=== PATIENT | female | born 1950 | race Hispanic/Latino ===

== ENCOUNTER 2018-03-24 11:23 | Day surgery (SDC) | payer MEDICARE ==
[2018-03-24] MEDS ORDERED: IOPIDINE OS ONE (11:50)
[2018-03-24] MEDS ORDERED: AK-Dilate OS ONE (11:55)
[2018-03-24] MEDS ORDERED: MYDRIACYL OS ONE (11:56)
[2018-03-24] MEDS ORDERED: IOPIDINE ONE (14:47)
[2018-03-24] MEDS ORDERED: AK-Dilate ONE (14:47)
[2018-03-24] MEDS ORDERED: MYDRIACYL ONE (14:48)
[2018-03-24 15:07] VITALS: BP 120/80
== END 2018-03-24 12:48 | disposition home or self-care (01) ==
LOC: OR 11:23
PROVIDERS: ATTEND Specialist
DX: H26.491 Other secondary cataract, right eye (principal); I73.9 Peripheral vascular disease, unspecified; J45.909 Unspecified asthma, uncomplicated; M19.90 Unspecified osteoarthritis, unspecified site; Z88.2 Allergy status to sulfonamides; Z86.73 Personal history of transient ischemic attack (TIA), and cerebral infarction without residual deficits; Z87.891 Personal history of nicotine dependence; Z90.710 Acquired absence of both cervix and uterus